=== PATIENT | male | born 1955 | race Caucasian/White ===

== ENCOUNTER 2016-07-27 02:29 | Inpatient (IN) | payer BC ==
[~2016-07-27] VITALS: Ht 182.9 cm; Wt 103.2 kg
[2016-07-27 03:52] LABS: BASOPHIL % 0.6 % (0-2); PLATELET COUNT 243 x10^3mcL (130-400); RED CELL DISTRIBUTION WIDTH 14.3 % (11.5-14.5)
[2016-07-27 04:07] LABS: CALCIUM 9.3 mg/dL (8.5-10.1); CARBON DIOXIDE 24.7 mmol/L (21-32); CHLORIDE SERUM 102 mmol/L (98-107); CREATININE SERUM 1.1 mg/dL (0.7-1.3); GFR1 > 60 mL/min; GLUCOSE SERUM 115 mg/dL (74-106); POTASSIUM SERUM 3.7 mmol/L (3.5-5.1); SODIUM SERUM 137 mmol/L (136-145)
[2016-07-27 04:14] LABS: ALBUMIN 3.6 g/dL (3.4-5.0); ALKALINE PHOSPHATASE 86 U/L (46-116); ALT/SGPT 28 U/L (16-63); AST/SGOT 21 U/L (15-37); BILIRUBIN TOTAL 0.43 mg/dL (0.20-1.00); TOTAL PROTEIN, SERUM 7.6 g/dL (6.4-8.2)
[2016-07-27 04:44] LABS: microscopic required? NO
[2016-07-27 04:50] LABS: UA SPECIFIC GRAVITY 1.025 (1.005-1.035); urine erythrocyte NEGATIVE (NEGATIVE)
[2016-07-27 04:59] LABS: AMPHETAMINE QUAL UR NONE DETECTED (NEG <=1000)
[2016-07-27] MEDS ORDERED: DEPAKOTE ER500 MG PO (05:09)
[2016-07-27] MEDS ORDERED: LORAZEPAM0.5 MG PO (05:09)
[2016-07-27 07:27] VITALS: BP 151/91
[2016-07-27 09:18] LABS: T3 TOTAL 1.1 ng/mL
[2016-07-27 09:25] LABS: CHOLESTEROL/HDL RATIO 4.5; PHOSPHOROUS 1.5 mg/dL (2.5-4.9)
[2016-07-27 09:36] LABS: FREE T4 0.97 ng/dL (0.76-1.46); FREE THYROXINE INDEX 2.1 ug/dL (1.4-4.5); T4(THYROXINE) 6.4 ug/dL (4.7-13.3)
[2016-07-27 09:45] VITALS: BP 152/89
[2016-07-27 15:38] VITALS: BP 125/83
[2016-07-27 18:35] VITALS: BP 138/95
[2016-07-27 21:25] VITALS: BP 138/81
[2016-07-28] VITALS (16 sets, daily range): BP systolic 141–176; BP diastolic 70–95; Ht 182.9 cm; Wt 103.2 kg
[2016-07-28 06:11] LABS: BASOPHIL % 0.4 % (0-2); PLATELET COUNT 211 x10^3mcL (130-400); RED CELL DISTRIBUTION WIDTH 14.5 % (11.5-14.5)
[2016-07-28 06:27] LABS: CALCIUM 8.5 mg/dL (8.5-10.1); CARBON DIOXIDE 25.8 mmol/L (21-32); CHLORIDE SERUM 107 mmol/L (98-107); GFR1 > 60 mL/min; GLUCOSE SERUM 93 mg/dL (74-106); MAGNESIUM 1.9 mg/dL (1.8-2.4); PHOSPHOROUS 2.9 mg/dL (2.5-4.9); POTASSIUM SERUM 3.9 mmol/L (3.5-5.1); SODIUM SERUM 141 mmol/L (136-145)
[2016-07-29 06:12] VITALS: BP 152/90
[2016-07-29 07:42] LABS: BASOPHIL % 0.4 % (0-2); PLATELET COUNT 205 x10^3mcL (130-400); RED CELL DISTRIBUTION WIDTH 14.3 % (11.5-14.5)
[2016-07-29 07:52] LABS: CALCIUM 8.4 mg/dL (8.5-10.1); CARBON DIOXIDE 27.5 mmol/L (21-32); CHLORIDE SERUM 105 mmol/L (98-107); CREATININE SERUM 0.9 mg/dL (0.7-1.3); GFR1 > 60 mL/min; GLUCOSE SERUM 89 mg/dL (74-106); MAGNESIUM 1.9 mg/dL (1.8-2.4); PHOSPHOROUS 3.4 mg/dL (2.5-4.9); POTASSIUM SERUM 4.2 mmol/L (3.5-5.1); SODIUM SERUM 140 mmol/L (136-145)
[2016-07-29 10:46] VITALS: BP 156/97
[2016-07-29] MEDS ORDERED: ZES10 PO (12:06)
[2016-07-29 13:53] VITALS: BP 168/87
[2016-07-29 14:11] VITALS: BP 168/87
[2016-07-29] MEDS ORDERED: BACO TOP (14:23)
[2016-07-29] MEDS ORDERED: HIBICLENS118 ML TOP (14:23)
[2016-07-29] MEDS ORDERED: ZESTRIL20 MG PO (15:08)
== END 2016-07-29 15:26 | disposition home or self-care (01) | DRG 312 ==
LOC: ED 02:29 → DU 05:32
PROVIDERS: Emergency Medicine; ADMIT Family Medicine
PROC: 0GBG3ZX Excision of Left Thyroid Gland Lobe, Percutaneous Approach, Diagnostic (ICD-10-PCS; principal; 2016-07-28)
DX: R55 Syncope and collapse (principal); I16.1 Hypertensive emergency; E04.1 Nontoxic single thyroid nodule; E03.9 Hypothyroidism, unspecified; E83.39 Other disorders of phosphorus metabolism; E78.2 Mixed hyperlipidemia; F31.9 Bipolar disorder, unspecified; E66.9 Obesity, unspecified; Z68.30 Body mass index [BMI] 30.0-30.9, adult
CPT/HCPCS: 60100; 80307; 83880; 84439; A9579; G0480; J2001; J7030; Q0092

== ENCOUNTER 2018-11-10 15:46 | Emergency (ER) | payer OTHER, BC ==
[~2018-11-10] VITALS: Ht 182.9 cm; Wt 93.9 kg
[~2018-11-10 15:46] MED LIST: BACO TOP; DEPAKOTE ER500 MG PO; HIBICLENS118 ML TOP; LORAZEPAM0.5 MG PO; ZES10 PO; ZESTRIL20 MG PO
[2018-11-10 15:52] VITALS: BP 149/85; Ht 182.9 cm; Wt 93.9 kg
== END 2018-11-10 17:11 | disposition home or self-care (01) ==
LOC: ED 15:46
DX: L03.031 Cellulitis of right toe (principal)

== ENCOUNTER 2019-12-02 22:47 | Emergency (ER) | payer OTHER, BC ==
[~2019-12-02] VITALS: Ht 182.9 cm; Wt 91.6 kg
[2019-12-02 22:55] VITALS: Ht 182.9 cm; Wt 91.6 kg
[2019-12-02 23:42] LABS: microscopic required? NO
[2019-12-03 00:06] LABS: BASOPHIL % 0.4 % (0-2); PLATELET COUNT 261 x10^3mcL (130-400); RED CELL DISTRIBUTION WIDTH 14.2 % (11.5-14.5)
[2019-12-03 00:12] LABS: CALCIUM 9.3 mg/dL (8.5-10.1); CARBON DIOXIDE 26.2 mmol/L (21-32); CHLORIDE SERUM 101 mmol/L (98-107); GFR1 > 60 mL/min; GLUCOSE SERUM 110 mg/dL (74-106); POTASSIUM SERUM 3.2 mmol/L (3.5-5.1); SODIUM SERUM 136 mmol/L (136-145)
[2019-12-03 00:16] LABS: ALBUMIN 3.9 g/dL (3.4-5.0); ALKALINE PHOSPHATASE 66 U/L (46-116); ALT/SGPT 28 U/L (16-63); AST/SGOT 23 U/L (15-37); BILIRUBIN TOTAL 0.9 mg/dL (0.20-1.00); TOTAL PROTEIN, SERUM 7.6 g/dL (6.4-8.2)
[2019-12-03 00:17] LABS: UA SPECIFIC GRAVITY >=1.030 (1.005-1.035); urine erythrocyte NEGATIVE (NEGATIVE)
[2019-12-03 00:25] LABS: AMPHETAMINE QUAL UR NONE DETECTED (See below)
--- NOTE | 2019-12-03 10:32 | NUR ---
Called and spoke with RN/Jasper. Intake information was faxed to our facility [facility] for review and potential placement pending COVID. Debbie VALIENTE/[facility] and Kaylah Director is aware
[2019-12-04 06:46] VITALS: BP 141/78
== END 2019-12-04 03:10 | disposition home or self-care (01) ==
LOC: ED 22:47
PROVIDERS: Specialist
DX: F32.9 Major depressive disorder, single episode, unspecified (principal); S09.8XXA Other specified injuries of head, initial encounter; S20.211A Contusion of right front wall of thorax, initial encounter; S40.011A Contusion of right shoulder, initial encounter; I10 Essential (primary) hypertension; Z20.828 Contact with and (suspected) exposure to other viral communicable diseases; Y04.8XXA Assault by other bodily force, initial encounter; Y93.89 Activity, other specified; Y92.89 Other specified places as the place of occurrence of the external cause; Y99.8 Other external cause status
CPT/HCPCS: G0480; Q0092; U0003-CS